=== PATIENT | female | born 1995 | race Caucasian/White ===

== ENCOUNTER 2023-07-31 09:41 | Outpatient (CLI) | payer OTHER, SELFPAY ==
[2023-07-31] VITALS (7 sets, daily range): BP systolic 139–149; BP diastolic 84–99; PULSE 73–91
[2023-07-31 10:25] LABS: Basophils Percent Auto 0.2 % (0.2-1.2); Eosinophils Absolute Auto 0.1 K/mm3 (0-0.3); Eosinophils Percent Auto 0.6 % (0-4.4); Hematocrit 41.2 % (37.0-47.0); Hemoglobin 13.3 g/dL (12.0-15.0); Immature Granulocyte Absolute 0.14 K/mm3 (0.00-0.031); Lymphocytes Absolute Auto 2.17 K/mm3 (0.9-3.2); Lymphocytes Percent Auto 15.1 % (18.3-44.2); Mean Corpuscular HGB Conc 32.3 g/dl (32-36); Mean Corpuscular Hemoglobin 28.5 pg (26-34); Mean Corpuscular Volume 88.4 fl (80-100); Mean Platelet Volume 10.2 fl (7.4-10.4); Monocytes Absolute Auto 0.9 K/mm3 (0.1-0.6); Monocytes Percent Auto 6.3 % (2.6-8.5); Neutrophils Absolute Auto 11.1 K/mm3 (1.3-6.7); Neutrophils Percent Auto 76.8 % (45.5-73.1); Platelet Count Result 213 k/mm3 (150-375); Red Blood Count 4.66 M/mm3 (4.2-5.4); Red Cell Distribution Width 13.2 % (11.5-14.5); White Blood Count 14.4 K/mm3 (4.5-10.0)
[2023-07-31 10:34] LABS: Appearance Urine Cloudy (Clear); Bacteria Urine None Seen /hpf; Bilirubin Urine Negative (Negative); Blood Urine Negative (Negative); Color Urine Yellow (Yellow); Glucose Urine UA Negative (Negative); Ketones Urine Negative (Negative); Leukocyte Esterase Ur Trace LEU/UL (NEGATIVE); Nitrate Urine Negative (Negative); Non Pathogenic Casts 0-2; Protein Urine Negative (Negative); RBC Urine 0-2 /hpf (0-2); Specific Grav Ur 1.011 (1.001-1.035); Squamous Epithelial Cell Urine None seen /hpf (Few); Urobilinogen Urine 0.2 mg/dL (<2.0); WBC Urine 0-5 /hpf (0-3)
[2023-07-31 10:38] LABS: Add Urine Microscopic? YES; Alanine Aminotransferase 11 U/L (6-35); Albumin Level 3.4 g/dL (3.5-5.1); Alkaline Phosphatase 122 U/L (38-126); Anion Gap 5 mmol/L (8-16); Aspartate Amino Transferase 16 U/L (14-36); Bilirubin,Total 0.4 mg/dL (0.2-1.3); Blood Urea Nitrogen 3 mg/dL (7-17); Calcium 9.3 mg/dL (8.4-10.2); Carbon Dioxide 22 mmol/L (22-30); Chloride 110 mmol/L (98-107); Estimated Glomerular Filt Rate > 60; Glucose 81 mg/dL (65-110); Potassium 3.8 mmol/L (3.4-5.0); Sodium 137 mmol/L (137-145); Uric Acid 4.2 mg/dL (2.5-7.5)
[2023-07-31 10:39] LABS: Creatinine Urine 56.1 mg/dL; Total Protein Urine Random 26 mg/dL; Ur Ttl Prot Creatinine Ratio 0.46 mg/mg (0-0.20)
== END 2023-07-31 11:15 | disposition home or self-care (01) ==
LOC: ANHOBOP 09:45 → ANHOBPP 09:46
PROVIDERS: Visit Provider Obstetrics & Gynecology
DX: O13.9 Gestational [pregnancy-induced] hypertension without significant proteinuria, unspecified trimester (principal); Z3A.00 Weeks of gestation of pregnancy not specified
CPT/HCPCS: 36415; 59025; 80053; 81001; 81050; 82570; 82575; 84156; 84550; 85025; 87086; 99199

== ENCOUNTER 2023-08-01 12:15 | Outpatient (CLI) | payer OTHER, SELFPAY ==
[2023-08-01 12:56] VITALS: BMI 42.5
[2023-08-01 14:00] LABS: Collection Time Urine 24 HOURS
[2023-08-01 14:06] LABS: Total Volume 24 Hour Urine 4500 ml
[2023-08-01 14:37] LABS: Patient Weight 255 Lbs
[2023-08-01 15:27] LABS: Creatinine Urine 37.4 mg/dL; Total Protein Urine Random 22 mg/dL
[2023-08-01 16:41] LABS: Total Protein Urine 24 Hr 990 mg/24hr (28-141)
== END 2023-08-01 12:16 | disposition home or self-care (01) ==
LOC: ANHOBOP 12:27
PROVIDERS: Visit Provider Obstetrics & Gynecology
DX: O13.9 Gestational [pregnancy-induced] hypertension without significant proteinuria, unspecified trimester (principal); Z3A.00 Weeks of gestation of pregnancy not specified
CPT/HCPCS: 81050; 82575; 84156

== ENCOUNTER 2023-08-05 08:33 | Observation (INO) | payer OTHER, SELFPAY ==
[2023-08-05] VITALS (11 sets, daily range): BP systolic 140–159; BP diastolic 88–102; PULSE 78–93; TEMP 36.6; BMI 41.4
--- NOTE | ~2023-08-05 | US_ITS ---
EXAMINATION: US OB follow up DATE: 08/05/2023 10:18 INDICATION: Status post fall. Evaluate fluid, placenta and estimated weight. Patient has hypert ension. TECHNIQUE: Real-time transabdominal obstetric ultrasound. FINDINGS: No prior studies for comparison. There is a single living fetus in vertex presentation. The placenta is anterior without placenta pre via. SAMM is normal measuring 10.9 cm. cardiac activity and movement is noted with a heart rate of 142 beats per minute. T he amniotic fluid volume is normal. The following biometric data were obtained: BPD: 98mm corresponds to gestational age 40 weeks 2 days. Head circumference: 347mm corresponds to gestational age 40 weeks 2 days. Abdominal circumference: 348mm corresponds to gestational age 38 weeks 5 days. Femur length: 75mm corresponds to gestational age 38 weeks 2 days. Estimated weight: 3653grams +/- 548grams. IMPRESSION: 1. Single living intrauterine in vertex presentation with an estimated gestational age of 39 weeks 3 days by current ultrasound. 2. Normal placenta. 3: SAMM is normal measuring 10.9 cm. Reviewed, dictated and finalized at location B. ER/REFUSE COLLECTOR IMPRESSION: 1. Single living intrauterine in vertex presentation with an estima jass gestational age of 39 weeks 3 days by current ultrasound. 2. Normal placenta. 3: SAMM is normal measuring 10.9 cm.
[2023-08-05 09:41] LABS: Basophils Percent Auto 0.2 % (0.2-1.2); Eosinophils Absolute Auto 0.2 K/mm3 (0-0.3); Hematocrit 40.7 % (37.0-47.0); Hemoglobin 13.6 g/dL (12.0-15.0); Immature Granulocyte Absolute 0.12 K/mm3 (0.00-0.031); Immature Granulocyte Percent A 0.8 % (0-0.5); Lymphocytes Absolute Auto 2.37 K/mm3 (0.9-3.2); Lymphocytes Percent Auto 15.9 % (18.3-44.2); Mean Corpuscular HGB Conc 33.4 g/dl (32-36); Mean Corpuscular Hemoglobin 29.2 pg (26-34); Mean Corpuscular Volume 87.5 fl (80-100); Mean Platelet Volume 10.1 fl (7.4-10.4); Monocytes Absolute Auto 0.8 K/mm3 (0.1-0.6); Monocytes Percent Auto 5.4 % (2.6-8.5); Neutrophils Absolute Auto 11.5 K/mm3 (1.3-6.7); Neutrophils Percent Auto 76.7 % (45.5-73.1); Platelet Count Result 189 k/mm3 (150-375); Red Blood Count 4.65 M/mm3 (4.2-5.4); Red Cell Distribution Width 13.1 % (11.5-14.5)
[2023-08-05 09:55] LABS: Alanine Aminotransferase 13 U/L (6-35); Albumin Level 3.2 g/dL (3.5-5.1); Alkaline Phosphatase 123 U/L (38-126); Anion Gap 8 mmol/L (8-16); Aspartate Amino Transferase 16 U/L (14-36); Bilirubin,Total 0.4 mg/dL (0.2-1.3); Blood Urea Nitrogen 3 mg/dL (7-17); Calcium 8.5 mg/dL (8.4-10.2); Carbon Dioxide 20 mmol/L (22-30); Chloride 108 mmol/L (98-107); Estimated Glomerular Filt Rate > 60; Glucose 108 mg/dL (65-110); Potassium 3.4 mmol/L (3.4-5.0); Sodium 136 mmol/L (137-145); Uric Acid 4.7 mg/dL (2.5-7.5)
[2023-08-05 09:56] LABS: Creatinine Urine 90.6 mg/dL; Total Protein Urine Random 27 mg/dL
--- NOTE | 2023-08-05 12:32 | WPDOBADMIT ---
Obstetrics - Admit Note Admission Note: 28 y/o G1 at 37 weeks gestation who fell on the ice today, striking right side. Good movement. No contractions. Has mild preeclampsia based on 24 hour urine. No symptoms. Labs have been ok. BP 140-150/80-95. Otherwise AVSS NST reactive TOCO: no contractions ABD soft, nontender, gravid, vertex EXT nontender Cervix 1/50/-2. US: IUP vertex, 3600 g EFW, normal placenta and fluid. A: IUP at 37 weeks, stable s/p fall. Mild preeclampsia. P: Home today. Offered induction of labor later this week. Reviewed risks, benefits, alternatives in detail, and will schedule Cervidil induction later this week.
--- NOTE | 2023-08-16 05:37 | PM.OBTRLD ---
OB - Triage/Final Diagnosis Visit Information Comments/Additional reasons for admission: I have assessed the risk for this patient, Maura Victoria, and determined that she would benefit from observation care. Evaluation Laboratory results: Laboratory Tests 08/05/23 09:30 WBC 15.0 H RBC 4.65 Hgb 13.6 Hct 40.7 MCV 87.5 MCH 29.2 MCHC 33.4 RDW 13.1 Plt Count 189 MPV 10.1 Immature Gran % (Auto) 0.8 H Neut % (Auto) 76.7 H Lymph % (Auto) 15.9 L [place] % (Auto) 5.4 Eos % (Auto) 1.0 Baso % (Auto) 0.2 Lymph # (Auto) 2.37 [place] # (Auto) 0.8 H Eos # (Auto) 0.2 Baso # (Auto) 0.0 Abs Immat Gran (auto) 0.12 H Absolute Neuts (auto) 11.5 H Absolute Nucleated RBC 0.0 Nucleated RBC % 0.0 Sodium 136 L Potassium 3.4 Chloride 108 H Carbon Dioxide 20 L Anion Gap 8 BUN 3 L Creatinine 0.40 L Estim Creat Clear Calc Not Reportable Estimated GFR > 60 Glucose 108 Uric Acid 4.7 Calcium 8.5 Total Bilirubin 0.4 AST 16 ALT 13 Alkaline Phosphatase 123 Total Protein 6.0 L Albumin 3.2 L U Random Total Protein 27 Urine Creatinine 90.6 Protein/Creat Ratio 2 0.30 H Final Diagnosis (1) Fall: Code(s): W19.XXXA - Unspecified fall, initial encounter Status: Acute
== END 2023-08-05 12:20 | disposition home or self-care (01) ==
PROVIDERS: Admitting Provider Obstetrics & Gynecology; Visit Provider Obstetrics & Gynecology
DX: Z04.3 Encounter for examination and observation following other accident (principal); O14.03 Mild to moderate pre-eclampsia, third trimester; W00.0XXA Fall on same level due to ice and snow, initial encounter; Z3A.37 37 weeks gestation of pregnancy
CPT/HCPCS: 36415; 76816; 80053; 82570; 84156; 84550; 85025; G0378; G0379

== ENCOUNTER 2023-08-06 17:07 | Inpatient (IN) | payer OTHER, SELFPAY ==
[2023-08-06] VITALS (22 sets, daily range): BP systolic 134–169; BP diastolic 72–113; PULSE 76–102; TEMP 36.8; BMI 42.5
--- NOTE | 2023-08-06 17:30 | LDADM ---
This patient, Maura Victoria, was admitted to Labor/Delivery/Recovery 107 on 08/06/23 at 17:07. Plans for labor, pain management and were discussed with patient. Patient/family oriented to hospital policies and general routines including ID bracelet, bed and alarms, visiting hours, pain management, procedures, bathroom and other care routines, personal items, smoking policy, room service/diet and guest tray routines, infant security routines, and visiting hours. Patient/Family are encouraged to report perceived risks to care and to ask questions if they do not understand what they are told or what they should do. See OBIX for further documentation.
[2023-08-06 17:55] LABS: Basophils Percent Auto 0.3 % (0.2-1.2); Eosinophils Absolute Auto 0.1 K/mm3 (0-0.3); Eosinophils Percent Auto 0.9 % (0-4.4); Immature Granulocyte Absolute 0.08 K/mm3 (0.00-0.031); Immature Granulocyte Percent A 0.6 % (0-0.5); Lymphocytes Absolute Auto 2.26 K/mm3 (0.9-3.2); Lymphocytes Percent Auto 16.4 % (18.3-44.2); Mean Corpuscular HGB Conc 33.3 g/dl (32-36); Mean Corpuscular Hemoglobin 29.3 pg (26-34); Mean Corpuscular Volume 87.8 fl (80-100); Mean Platelet Volume 10.2 fl (7.4-10.4); Monocytes Absolute Auto 0.9 K/mm3 (0.1-0.6); Monocytes Percent Auto 6.7 % (2.6-8.5); Neutrophils Absolute Auto 10.3 K/mm3 (1.3-6.7); Neutrophils Percent Auto 75.1 % (45.5-73.1); Platelet Count Result 195 k/mm3 (150-375); Red Blood Count 4.44 M/mm3 (4.2-5.4); Red Cell Distribution Width 13.1 % (11.5-14.5); White Blood Count 13.8 K/mm3 (4.5-10.0)
[2023-08-06] MEDS: LACTATED RINGERS 1,000 ML 125 ML IV CONT (18:00)
[2023-08-06] MEDS: ceFAZolin 2 GM/D5W 50 ML 2 GM/50 ML BAG IVPB (18:00)
[2023-08-06] MEDS: DINOPROSTONE 10 MG VAG INSERT VAGINAL (18:03)
[2023-08-06] MEDS: NIFEdipine 10 MG CAPSULE PO (20:30)
[2023-08-06] MEDS: ACETAMINOPHEN 500 MG TABLET 1000 MG PO (22:23)
[2023-08-07] VITALS (342 sets, daily range): BP systolic 80–172; BP diastolic 38–131; PULSE 25–174; RESP 16–19; TEMP 36.2–36.9; O2SAT 66–100
[2023-08-07] MEDS: NIFEdipine 10 MG CAPSULE PO (00:11)
[2023-08-07] MEDS: ACETAMINOPHEN/BUTALBITAL/CAFFEINE 325-50-40 MG TABLET (FIORICET) 1 TAB PO (01:40)
[2023-08-07] MEDS: ONDANSETRON INJ 4 MG/2 ML VIAL IV PUSH ×3 (02:03→17:55)
[2023-08-07] MEDS: ceFAZolin 1 GM/NS 50 ML 1 GM/50 ML BAG IVPB (02:31)
[2023-08-07] MEDS: MAGNESIUM SULF 4 GM/WATER100ML 4 GM/100 ML BAG IVPB (03:10)
[2023-08-07] MEDS: MAGNESIUM SULF 20GM/WATER500ML 500 ML 50 MG IV CONT ×3 (03:55→23:36)
[2023-08-07] MEDS: LABETALOL HCL INJ 100 MG/20 ML VIAL 20 MG IV PUSH ×2 (04:02→05:22)
[2023-08-07] MEDS: OXYTOCIN 30 UNITS/NS 500 ML 30 UNITS/500 ML BAG 6 UNITS IV CONT (05:53)
--- NOTE | 2023-08-07 06:27 | WPDANESEPP ---
Anes - Eval Pre Procedure Procedure: labor epidural Date/Time: 08/07/23 06:27 Surgeon: zach Preop Diagnosis: pain during labor Pre Op Diagnosis: IOL Patient Data Age: 28 Gender: F Height: 1.65 m Weight: 116 kg Last Vital Signs Temp 36.6 C 08/07/23 06:16 Pulse 71 08/07/23 06:16 Resp 18 08/07/23 06:16 BP 154/93 H 08/07/23 06:16 Pulse Ox 98 08/07/23 06:26 O2 Del Method Room Air 08/07/23 00:38 Allergies Allergy/AdvReac Type Severity Reaction Status Date / Time hydrocodone Allergy Nausea and Verified 07/26/23 12:29 Vomiting ibuprofen Allergy Nausea and Verified 07/26/23 12:29 Vomiting Penicillins Allergy Hives Verified 07/26/23 12:29 Home Medications Medication Instructions Recorded Confirmed Type Classic 1 tab-cap PO DAILY 07/26/23 07/26/23 History ergocalciferol (vitamin D2) 25,000 50,000 unit PO WEEKLY 07/26/23 07/26/23 History unit capsule levothyroxine 175 mcg tablet 175 mcg PO DAILY 07/26/23 07/26/23 History Laboratory Tests 08/06/23 17:25 WBC 13.8 H K/mm3 (4.5-10.0) RBC 4.44 M/mm3 (4.2-5.4) Hgb 13.0 g/dL (12.0-15.0) Hct 39.0 % (37.0-47.0) MCV 87.8 fl (80-100) MCH 29.3 pg (26-34) MCHC 33.3 g/dl (32-36) RDW 13.1 % (11.5-14.5) Plt Count 195 k/mm3 (150-375) MPV 10.2 fl (7.4-10.4) Immature Gran % (Auto) 0.6 H % (0-0.5) Neut % (Auto) 75.1 H % (45.5-73.1) Lymph % (Auto) 16.4 L % (18.3-44.2) Sequoyah % (Auto) 6.7 % (2.6-8.5) Eos % (Auto) 0.9 % (0-4.4) Baso % (Auto) 0.3 % (0.2-1.2) Lymph # (Auto) 2.26 K/mm3 (0.9-3.2) Sequoyah # (Auto) 0.9 H K/mm3 (0.1-0.6) Eos # (Auto) 0.1 K/mm3 (0-0.3) Baso # (Auto) 0.0 K/mm3 (0.0-0.1) Abs Immat Gran (auto) 0.08 H K/mm3 (0.00-0.031) Absolute Neuts (auto) 10.3 H K/mm3 (1.3-6.7) Absolute Nucleated RBC 0.0 K/mm3 (0.0-0.012) Nucleated RBC % 0.0 % (0.0-0.2) RPR Pending Blood Type A Positive Antibody Screen Negative Patient hx anesthesia problems: none Family hx anesthesia problems: none Results Review: All pre-operative results and documents have been reviewed as part of the pre-operative evaluation. [facility] Past Medical History Medical History (Updated 08/07/23 @ 06:29 by Milana Terrazas CRNA) Anxiety Depression Hypothyroidism (acquired) IUP (intrauterine ), incidental Morbid obesity with BMI of 40.0-44.9, adult Family History Family History (Updated 07/26/23 @ 12:39 by Nancy Calles RN) Father Hypertension Mother Asthma Diverticulitis Grandparent Cerebrovascular accident Social History Social History Smoking status: Never smoker Substance use: never Do You Feel Safe in your Home?: Yes Lack of Transportation: No Lack of Food: Never True Current Housing: I Have Housing Concerned About Future Housing: YES Difficulty Paying Gas/Electric Bills: No Difficulty Paying for Meds: No Currently Unemployed: No Education: Bachelor's Degree Difficulty w/ Childcare or Family Care: No Spiritual care concerns: No Exam Day of Procedure 08/07/23 06:27
[2023-08-07] MEDS: ACETAMINOPHEN 500 MG TABLET 1000 MG PO (07:22)
[2023-08-07 09:08] LABS: Rapid Plasma Reagin Non-Reactive (NonReactive)
[2023-08-07] MEDS: LACTATED RINGERS 1,000 ML 75 ML IV CONT ×2 (10:21→23:35)
--- NOTE | 2023-08-07 20:41 | PM.IMHP ---
H&P: HPI History of Present Illness Date/Time: 08/07/23834 Chief Complaint: Here for induction of labor. Narrative: 28 y/o G1 at 37 4/7 weeks with mild preeclampsia based on 24 hour urine (990 mg protein), with elevated bp readings (140-150/90), here for induction of labor. Cervidil overnight. She developed headache and elevated bp in severe range overnight. BP was treated, and she was started on magnesium sulfate for seizure prophylaxis. This morning, Cervidil has been withdrawn and she is feeling some contractions. US 3 weeks ago showed EFW 7#1oz. Review of Systems Review of Systems: All systems reviewed & are unremarkable except as noted in HPI and below PMFSH Past Medical History Medical History Anxiety Depression Hypothyroidism (acquired) IUP (intrauterine ), incidental Morbid obesity with BMI of 40.0-44.9, adult Family History Family History Father Hypertension Mother Asthma Diverticulitis Grandparent Cerebrovascular accident Social History Social History Smoking status: Never smoker Substance use: never Do You Feel Safe in your Home?: Yes Lack of Transportation: No Lack of Food: Never True Current Housing: I Have Housing Concerned About Future Housing: YES Difficulty Paying Gas/Electric Bills: No Difficulty Paying for Meds: No Currently Unemployed: No Education: Bachelor's Degree Difficulty w/ Childcare or Family Care: No Spiritual care concerns: No Meds Home Medications and Allergies Home Medications Medication Instructions Recorded Confirmed Type Classic 1 tab-cap PO DAILY 07/26/23 07/26/23 History ergocalciferol (vitamin D2) 25,000 50,000 unit PO WEEKLY 07/26/23 07/26/23 History unit capsule levothyroxine 175 mcg tablet 175 mcg PO DAILY 07/26/23 07/26/23 History Allergies Allergy/AdvReac Type Severity Reaction Status Date / Time hydrocodone Allergy Nausea and Verified 07/26/23 12:29 Vomiting ibuprofen Allergy Nausea and Verified 07/26/23 12:29 Vomiting Penicillins Allergy Hives Verified 07/26/23 12:29 Vital Signs Vital Signs - 24 hr 08/06/23 20:46 08/06/23 20:51 08/06/23 21:01 Temperature Pulse Rate 96 89 94 Respiratory Rate Blood Pressure 149/95 H 147/91 H 155/85 H Pulse Oximetry Oxygen Delivery 08/06/23 21:31 08/06/23 21:33 08/06/23 22:00 Temperature Pulse Rate 97 94 89 Respiratory Rate Blood Pressure 165/98 H 156/98 H 151/93 H Pulse Oximetry Oxygen Delivery 08/06/23 22:30 08/06/23 23:01 08/06/23 23:31 Temperature Pulse Rate 77 86 83 Respiratory Rate Blood Pressure 151/101 H 154/102 H 166/96 H Pulse Oximetry Oxygen Delivery 08/06/23 23:52 08/07/23 00:01 08/07/23 00:31 Temperature Pulse Rate 83 85 113 H Respiratory Rate Blood Pressure 161/92 H 167/106 H 137/76 Pulse Oximetry Oxygen Delivery 08/07/23 01:01 08/07/23 01:32 08/07/23 01:53 Temperature Pulse Rate 117 H 85 89 Respiratory Rate Blood Pressure 155/80 H 171/104 H 156/98 H Pulse Oximetry Oxygen Delivery 08/07/23 02:01 08/07/23 02:09 08/07/23 02:31 Temperature Pulse Rate 96 95 74 Respiratory Rate Blood Pressure 167/109 H 149/107 H 172/101 H Pulse Oximetry Oxygen Delivery 08/07/23 03:01 08/07/23 03:14 08/07/23 03:19 Temperature Pulse Rate 84 Respiratory Rate Blood Pressure 169/111 H Pulse Oximetry 98 100 Oxygen Delivery 08/07/23 03:24 08/07/23 03:29 08/07/23 03:31 Temperature Pulse Rate 93 Respiratory Rate Blood Pressure 154/87 H Pulse Oximetry 98 99 Oxygen Delivery 08/07/23 03:34 08/07/23 03:39 08/07/23 03:46 Temperature Pulse Rate Respiratory Rate Blood Pressure Pulse Oximetry 99 97 98 Oxygen Delivery
--- NOTE | 2023-08-07 20:47 | PM.OBPNLAB ---
Pain Control Date/time seen: 08/07/23 1300 Comments: Comfortable with epidural. Pelvic Exam Dilation (cm): 4 Effacement (%): 80 station: -1 Contractions Contraction frequency: 3 Contraction pattern: Regular Status status: Category l Assessment and Plan Plan: continuous present management
--- NOTE | 2023-08-07 20:47 | PM.OBPNLAB ---
Pain Control Date/time seen: 08/07/23 20:30 Comments: Pushing for 2 hours. Pelvic Exam Dilation (cm): 10 Effacement (%): 100 station: +2 Contractions Contraction frequency: 3 Contraction pattern: Regular Status status: Category l Assessment and Plan Pitocin rate (mU/min): 30 Comments: Continue pushing.
[2023-08-07] MEDS: OXYTOCIN 30 UNITS/NS 500 ML 30 UNITS/500 ML BAG 999 UNITS IV CONT (21:25)
--- NOTE | 2023-08-07 21:45 | PM.OBPRVD ---
OB - Vaginal Delivery Note Procedure Delivery date: 08/07/23 Events: Preeclampsia w/o severe features Induction method: Per Cervidil Protocol Delivery augmentation: Rupture of Membranes and Pitocin Delivery monitor: External FHT, External Uterine and Internal Uterine Route of delivery: Episiotomy description: None Laceration Description: Perineal - 2nd Degree Delivery repair: vicryl (3-0) Specimen: Yes (cord blood, placenta) Quantitative Blood Loss (ml): 660 Anesthesia type: Epidural Disposition: PACU Complications: None Narrative: 28 y/o G1 at 37 4/7 weeks gestation who presented to the hospital for induction of labor. Cervidil was placed overnight. She had a headache and bp readings in the severe range, so magnesium sulfate was started. In the morning the Cervidil was withdrawn. Oxytocin was administered intravenously. Amniotomy was performed with return of clear fluid. She received an epidural for pain control. Her labor progressed and her cervix dilated completely. She pushed with good effort and delivered the 's head to the perineum, followed by the body. The nose and mouth were bulb suctioned. After a delay, the cord was clamped and cut. The infant was handed off the field. Cord blood was collected. The placenta delivered spontaneously and was grossly normal in appearance. The usual 3 vessel cord was noted. A second degree midline perineal laceration was sustained. This was infiltrated with an additional 10 mL of lidocaine for supplemental anesthesia and reapproximated using 3 0 Vicryl in the usual layered fashion. Excellent hemostasis resulted as did excellent reapproximation of the normal anatomy. Needle and instrument counts were correct. Cytotec 1000 mcg was administered OR. The patient was taken to recovery room in stable condition. The went to the nursery in stable condition. I was present and scrubbed for the entire delivery. Baby Date of : 08/07/23 Time of : 21:13 Weeks of gestation at delivery: 37 gender: Male Weight (pounds): 7 Weight (ounces): 14 presentation: vertex position: Left Occiput Anterior Placenta delivery description: Spontaneous and Normal Configuration Cord Vessel Description: 3 Vessels score one minute: 8 score five minutes: 9
--- NOTE | 2023-08-07 21:48 | PM.OBDSVD ---
DS: Admitting Diagnosis Discharge Date 08/09/23 Admitting Diagnosis IUP at 37 4/7 weeks Preeclampsia with severe features DS: Discharge Diagnosis Discharge Diagnosis (1) (normal spontaneous vaginal delivery): Code(s): O80 - Encounter for full-term uncomplicated delivery Status: Acute (2) Pre-eclampsia in third trimester: Code(s): O14.93 - Unspecified pre-eclampsia, third trimester Status: Acute OB - DS: Summary OB Procedures : PIH Mgmt OB Procedures Intrapartum: Spontaneous Vag Delivery OB Procedures: : None Peripartum Data Laceration Description: Perineal - 2nd Degree Episiotomy description: None Time Spent with Patient Time attestation: Total time spent providing and/or coordinating discharge services: DS: Data Data Completed and Pending Labs on day of discharge: Labs from last 24 hours 08/06/23 17:25 RPR Non-reactive Discharge Plan Discharge Attending physician on discharge: Blaze Lamb Consulting providers: Milana Terrazas; Mari Mae Discharging Clinician: Blaze Lamb Patient Disposition: Home, Self-Care Activity: pelvic rest Diet: regular Discharge Instructions: Education: Mom and Baby Guide Given to: Mother Follow-Up: Call your delivering provider's office for an appointment to be seen in: 1 Week Mom and baby should come to the [facility] for the follow-up appointment. Appointment Date/Time: August 12, 2023 at 12:30 pm What to expect at your follow-up visit: Blood Pressure Check Call [phone] if you are unable to keep your appointment time. BREAST CARE: * Wear a snug supportive bra. * For engorgement discomfort: Breast Feeding: * Apply warm moist washcloths * Express milk as needed to relieve engorgement * Wear loose clothing Bottle Feeding: * May apply ice packs * For sore nipples: * Identify correct latch-on * Apply warm moist washcloths before and after nursing * Air dry nipples after nursing * May apply Lansinoh cream to nipples EPISIOTOMY/PERINEAL CARE: * Until bleeding stops, use your angi bottle after urinating * Change your pad frequently throughout the day * You may take sitz baths several times a day (fill your bathtub with warm water and soak for 20 minutes.) Do NOT bathe in the water * No tub baths until seen by your physician - You may shower ACTIVITY: * Rest as much as possible. * Do not exercise or lift anything heavier than your baby (such as laundry or other children.) * Avoid stairs or driving as much as possible. * Do not put anything into the vagina. No douching, tampons, or sexual activity until seen by physician. NOTIFY PHYSICIAN IF YOU HAVE ANY QUESTIONS OR IF ANY OF THE FOLLOWING SYMPTOMS OCCUR: * If your episiotomy or incision becomes red, swollen, or more painful than what you have experienced in the hospital. * If your vaginal bleeding becomes foul smelling. * If your vaginal bleeding becomes more heavy than a period or if your bleeding changes from pink to bright red. However, you may pass an occasional walnut-sized clot once or twice for the first week . * If you experience a sharp, shooting pain in you calves. * If you discover a hard, reddened area on your breast or if you experience flu-like symptoms. DIET: * Eat regular, well-balanced meals. * Drink plenty of fluids daily. If , drink to thirst.Call or return if temperature above 100.4? F, increased abdominal pain, increased vaginal bleeding or any new problems. Stand Alone Forms: General Discharge Information, Work/School Release IP Follow-up/Referrals: Blaze Lamb MD [Physician] - 6 Weeks Discharge Medications: New labetalol 100 mg tablet 100 mg PO Q12H Qty: 60 0RF Continued levothyroxine 175 mcg Tablet 175 mcg PO DAILY ergocalcife
[2023-08-07] MEDS: OXYTOCIN 30 UNITS/NS 500 ML 30 UNITS/500 ML BAG 125 UNITS IV CONT (22:00)
[2023-08-07] MEDS: miSOPROStol 200 MCG TABLET 1000 MCG (22:14)
[2023-08-07] MEDS: LIDOCAINE HCL 1% LOCAL INJ 20 ML VIAL (22:15)
[2023-08-08] VITALS (9 sets, daily range): BP systolic 130–160; BP diastolic 80–108; PULSE 75–98; RESP 16–20; TEMP 36.4–37.4; O2SAT 95–100
[2023-08-08] MEDS: WITCH HAZEL 40 PADS 1 PAD TOPICAL (00:13)
--- NOTE | 2023-08-08 00:49 | OBPPTRN ---
Patient transferred to post room #291 via wheelchair. Support person present. Oriented to unit, room, information board, rooming in, admission packet and security measures. Patient verbalizes understanding.
[2023-08-08] MEDS: BENZOCAINE 20% AER SPR (*SP) 56 GM CAN 1 SPRAY TOPICAL (01:46)
[2023-08-08 04:39] LABS: Hematocrit 34.9 % (37.0-47.0); Hemoglobin 11.8 g/dL (12.0-15.0)
[2023-08-08] MEDS: ACETAMINOPHEN 325 MG TABLET 650 MG PO ×3 (05:20→19:18)
[2023-08-08] MEDS: MULTIVIT/MIN/PREN/FOL AC/IRON TABLET 1 TAB PO (07:07)
--- NOTE | 2023-08-08 08:58 | PM.OBPNVD ---
OB - PN: Subj Subjective Date/time seen: 08/08/23 08:58 Narrative: Pain OK. Would like circumcision for son. OB - PN: Obj Data Labs 08/08/23 03:39 Labs: Laboratory Results - last 24 hr 08/06/23 08/08/23 17:25 03:39 Hgb 11.8 L Hct 34.9 L RPR Non-reactive OB - PN A/P Plan Comments: A: PPD#1, doing well. Preeclampsia; no antihypertensives at this time. P: Routine care. Exam Psych: Other: AVSS I/O inaccurate (voided without hat this morning) ABD soft, nontender, fundus firm EXT nontender
--- NOTE | 2023-08-08 09:17 | WPDANLDPN2 ---
Anes-Prog Note L&D Date/Time: 08/08/23 09:17 Comfortable throughout: labor and delivery Neuraxial method: epidural Epidural/Spinal procedure site: clean & non-tender Neuro status: Neuro function grossly intact. Cardiovascular status: normal Respiratory status: normal Airway patency: baseline Mental status: baseline Post-Op hydration status: normal Vital Signs: Last Vital Signs Temp 37.4 C 08/08/23 07:40 Pulse 88 08/08/23 07:40 Resp 18 08/08/23 07:40 BP 130/85 08/08/23 07:40 Pulse Ox 97 08/08/23 07:40 O2 Del Method Room Air 08/07/23 00:38 Pain score (VAS): 07/24 I/O: Intake & Output 08/07/23 08/08/23 08/08/23 23:59 07:59 15:59 Intake Total 2500 Output Total 660 335 Balance 1840 -335 Patient feedback: Patient satisfied with anesthetic care.
[2023-08-08] MEDS: MAGNESIUM SULF 20GM/WATER500ML 500 ML 50 MG (09:20)
[2023-08-08] MEDS: ONDANSETRON INJ 4 MG/2 ML VIAL IV PUSH (10:04)
[2023-08-08 10:52] LABS: Alanine Aminotransferase 14 U/L (6-35); Albumin Level 2.8 g/dL (3.5-5.1); Alkaline Phosphatase 121 U/L (38-126); Anion Gap 10 mmol/L (8-16); Aspartate Amino Transferase 29 U/L (14-36); Bilirubin,Total 0.5 mg/dL (0.2-1.3); Blood Urea Nitrogen 3 mg/dL (7-17); Calcium 7.3 mg/dL (8.4-10.2); Carbon Dioxide 18 mmol/L (22-30); Chloride 104 mmol/L (98-107); Estimated CRCL calculation 178 ml/min; Estimated Glomerular Filt Rate > 60; Glucose 119 mg/dL (65-110); Potassium 3.1 mmol/L (3.4-5.0); Sodium 132 mmol/L (137-145)
[2023-08-08] MEDS: LACTATED RINGERS 1,000 ML 75 ML IV CONT (12:51)
--- NOTE | 2023-08-08 14:00 | PC.NURSE ---
While helping patient in the bathroom, patient became very tearful. She stated that she is very overwhelmed with being on mag and feeling sick . She stated that she just doesn't have the mental or physical strength to make herself pump or breastfeed while being on the mag infusion. Patient wants to take a break from making herself pump and breastfeed until she is off the mag infusion and feeling better. Patient stated that the last time she tried to pump, she started feeling lightheaded and dizzy. Patient is fine with bottle feeding baby until she is feeling better, that way dad can help with feedings and she can focus on feeling better.
--- NOTE | 2023-08-08 14:09 | PC.NURSE ---
1222 - Earlier this morning RN LC purposefully rounded and mother was not feeling well and Primary RN was assessing, then later Blood sugar obtained at 49mg/dl prior to the next feeding, however; Dr. Lamb is present for the circumcision procedure. Report received regarding has been supplemented related to ineffective and low blood sugars. Mother finger feeds drops of colostrum to her infant and has been encouraged to pump to protect her milk supply, however; Mother has not been consistent with pumping or attempting to breastfeed related to her not feeling well. Mother pumped while infant was in the nursery and was supplemented formula.
--- NOTE | 2023-08-08 16:07 | PC.NURSE ---
1520 - Primary RN reported that mother doesn't want to pump right now related to not feeding well. Primary RN plans to encourage pumping, practice [id number], and as she feels better. Father of baby states they have practiced [id number] and attempted to latch infant when mother feels well enough to do so.
[2023-08-09 03:45] VITALS: BP 147/97; PULSE 85; RESP 16; TEMP 36.9; O2SAT 99
[2023-08-09 07:00] VITALS: BP 155/93; PULSE 62; RESP 18; TEMP 36.8; O2SAT 94
--- NOTE | 2023-08-09 07:00 | PM.OBPNVD ---
OB - PN: Subj Subjective Date/time seen: 08/09/23 07:00 Patient comments: no complaints and pain well controlled baby status: doing well OB - PN: Obj Data Labs 08/08/23 03:39 08/08/23 10:34 Labs: Laboratory Results - last 24 hr 08/08/23 10:34 Sodium 132 L Potassium 3.1 L Chloride 104 Carbon Dioxide 18 L Anion Gap 10 BUN 3 L Creatinine 0.50 L Estim Creat Clear Calc 178 Estimated GFR > 60 Glucose 119 H Calcium 7.3 L Magnesium 5.0 H Total Bilirubin 0.5 AST 29 ALT 14 Alkaline Phosphatase 121 Total Protein 5.0 L Albumin 2.8 L OB - PN A/P Plan day: 2 Plan: routine care ( begin labetalol and discharged today), discharge home and follow up 6 weeks (2) Time Spent With Patient Time: Total time spent is greater than 50% in coordination of care (as documented) at patient's floor/unit and/or counseling patient: Time with patient: less than 15 minutes Exam Const: General: cooperative, healthy appearing and comfortable Orientation/consciousness: oriented to person, oriented to place and oriented to time Resp: Effort & Inspection: normal respiratory effort GI: Inspection: normal to inspection ( fundus firm below the umbilicus)
--- NOTE | 2023-08-09 07:02 | PM.DS ---
DS: Admitting Diagnosis Discharge Date 08/09/2023 Admitting Diagnosis -induced hypertension at term DS: Discharge Diagnosis Discharge Diagnosis (1) Pre-eclampsia in third trimester: Code(s): O14.93 - Unspecified pre-eclampsia, third trimester Status: Acute (2) (normal spontaneous vaginal delivery): Code(s): O80 - Encounter for full-term uncomplicated delivery Status: Acute DS: Summary Hospital Course Reason for hospitalization: patient was admitted for induction of labor at term with elevated blood pressures Hospital Course: patient underwent spontaneous vaginal delivery. She was placed on magnesium and stopped on 08/08/2023. Blood pressures remained mildly to moderately elevated and she was begun labetalol 100 b.i.d. she was up, voiding without difficulty, eating regular diet, ambulating, generally without complaints. Time Spent with Patient Time attestation: Total time spent providing and/or coordinating discharge services: Exam Const: General: cooperative, healthy appearing and comfortable Nutritional Appearance: average body habitus Orientation/consciousness: oriented to person, oriented to place and oriented to time Resp: Effort & Inspection: normal respiratory effort Cardio: Rate: regular rate Rhythm: regular rhythm Heart sounds: S1 normal heart sound present and S2 normal heart sound present GI: Inspection: normal to inspection DS: Data Data Completed and Pending Pending studies at discharge: Pending at discharge 08/07/23 21:17 Surgical [PTH] Routine Labs on day of discharge: Labs from last 24 hours 08/08/23 10:34 Sodium 132 L Potassium 3.1 L Chloride 104 Carbon Dioxide 18 L Anion Gap 10 BUN 3 L Creatinine 0.50 L Estim Creat Clear Calc 178 Estimated GFR > 60 Glucose 119 H Calcium 7.3 L Magnesium 5.0 H Total Bilirubin 0.5 AST 29 ALT 14 Alkaline Phosphatase 121 Total Protein 5.0 L Albumin 2.8 L Discharge Plan Discharge Attending physician on discharge: Blaze Lamb Discharging Clinician: Blaze Lamb Patient Disposition: Home, Self-Care Activity: pelvic rest Diet: regular Discharge Instructions: Call or return if temperature above 100.4? F, increased abdominal pain, increased vaginal bleeding or any new problems. Stand Alone Forms: General Discharge Information Follow-up/Referrals: Blaze Lamb MD [Physician] - 6 Weeks Discharge Medications: New labetalol 100 mg tablet 100 mg PO Q12H Qty: 60 0RF Continued levothyroxine 175 mcg Tablet 175 mcg PO DAILY ergocalciferol (vitamin D2) 25,000 unit Capsule 50,000 unit PO WEEKLY Classic 1 tab-cap PO DAILY Date of admission: 08/06/23 17:07 Primary Care Provider: UNKNOWN,DOCTOR Admitting Provider: Blaze Lamb Attending physician on admission: Blaze Lamb Condition: Stable
[2023-08-09 09:10] VITALS: PULSE 76
[2023-08-09] MEDS: LABETALOL HCL 100 MG TABLET PO ×2 (09:10→20:26)
[2023-08-09] MEDS: MULTIVIT/MIN/PREN/FOL AC/IRON TABLET 1 TAB PO (09:10)
[2023-08-09 12:05] VITALS: BP 135/76; PULSE 75; RESP 16; TEMP 36.9; O2SAT 99
--- NOTE | 2023-08-09 16:34 | PC.NURSE ---
[id number] Purposefully rounded to assess for needs. is under phototherapy. Mother is a bit discouraged, is crying, and dad is anxious as this is their first child. Assisted father with changing 's wet diaper with a circumcision. Demonstrated soothing techniques for infant under bili lights. Reviewed instructions given on cleaning, care, usage, that there should be no pain, pumping schedule for milk production, collection, and storage of human milk. Patient was assessed for correct placement, flange size (21mm is used), to pump for comfort and nipple stretching/stimulation for adequate milk production every 3 hours (8 times in 24 hours) 1-2 times at night. Parents are encouraged to record the pumping schedule on the feeding sheet.?Parents voiced understanding of the education shared along with mom/baby guide and the pump measurement, flange fit handout for additional resource information. Encouraged understanding of the benefits of skin to skin (demonstrating unwrapping infant and placing upright on her chest), stimulating with massage touch, changing positions to encourage wakefulness, how to watch for early feeding cues, responsive feeding, feeding on demand (aiming for 8-12 times in 24 hours, about every 2-3 hours), milk production, building/maintaining a milk supply, duration of feeding, signs of adequate intake/output and how to record on the feeding sheet. Parents voiced understanding of skin to skin, stimulating with massage touch, responsive feedings, hand expressed colostrum, talking to infant to encourage if it has been 2 -2.5 hours since the start of the last , to call if does not latch, or if there is discomfort with . Resources used for education were facilitated with the visual educational handouts, tool, mom and baby guide. Inpatient/outpatient resources provided with feeding sheet, name written on the communication board, and the mom/baby guide. Parents voiced understanding of information, demonstrated learning and will call if there is a request for assistance. Reported to the Primary RN. Reported to the Primary RN. [id number] Reviewed the importance of S2S, demonstrated waking , and how to build and maintain milk production by pumping every 3 hours (8 times in 24 hours) 1-2 times at night if infant is not latching or receives a bottle. Parents are encouraged to record the pumping schedule on the feeding sheet.?Parents voiced understanding of the education. Reported to the Primary RN. [id number] Parents requested a consulted related to having infant [id number] and seeing feeding cues. We reviewed working with the , supporting breast, protecting her nipples with an optimal deep latch, good positioning, and good hand washing. Encouraged understanding the benefits of skin to skin, responding to feeding cues, frequencies of feeding 8-12 times in 24 hours (approximately 2-3 hours), duration of feedings, milk production, intake/output feeding sheet and signs of adequate intake encouraging swallowing at the breast. Infant was fed the 2mls of EBM from a [employer] in small amounts to reward infants sucking behavior, then reviewed positioning and alignment, supporting breast, off-centered (asymmetrical latch) and leading with the chin with big, open, wide gape. latched optimally to the right breast in football position. Education given to the parents of how to visualize the suckling (with good rocking jaw motion) swallows (dropping of the lower jaw) and how to listen for drinking at the breast (the ka sound). The was able to maintain latch without discomfort to mother and demonstrated effective . Nipple care reviewed with optimal latch, good positioning and using clean hands when touching her breast. Resources used to facilitate learning were used from the visual handouts, tool,feeding sheet, mom and baby guide. Timo
[2023-08-09 20:26] VITALS: PULSE 75
--- NOTE | 2023-08-09 20:45 | PC.NURSE ---
Discharge instructions reviewed with patient and spouse. Questions answered. Patient walked with spouse and in safety seat to private vehicle in [place].
[2023-08-12 13:14] VITALS: BP 146/92; PULSE 78; RESP 18; TEMP 36.8; O2SAT 100
== END 2023-08-09 20:45 | disposition home or self-care (01) | DRG 807 ==
LOC: ANHLDR 08-07 21:49 → ANHOB2 08-08 13:24 → ANHLDR 08-12 09:00 → ANHOB2 08-12 09:00
PROVIDERS: Admitting Provider Obstetrics & Gynecology; Visit Provider Obstetrics & Gynecology
DX: O14.94 Unspecified pre-eclampsia, complicating childbirth (principal); Z37.0 Single live birth; Z3A.37 37 weeks gestation of pregnancy; O70.1 Second degree perineal laceration during delivery
CPT/HCPCS: 36415; 76816; 80053; 82570; 83735; 84156; 84550; 85014; 85018; 85025; 86592; 86850; 86900; 86901; 88307; A9270; G0378; G0379; J0690; J2405; J2590; J2795; J3475; J7120